=== PATIENT | male | born 1940 | race Caucasian/White ===

== ENCOUNTER → 2025-01-17 06:33 | Outpatient (REF) | payer MEDICARE, BC, SELFPAY ==
[2025-01-17 08:39] LABS: Blood Urea Nitrogen 28 mg/dl (9-20); Calcium 9.3 mg/dl (8.4-10.2); Carbon Dioxide 31 mmol/L (22-30); Chloride 105 mmol/L (98-107); Glucose 117 mg/dl (70-99); Potassium 3.8 mmol/L (3.5-5.1); Sodium 144 mmol/L (135-145); eGFR > 60.00
== END ==
LOC: REG 06:33
PROVIDERS: ATTENDING PHYSICIAN Specialist; FAMILY PHYSICIAN Family Medicine
DX: N28.89 Other specified disorders of kidney and ureter (principal)
CPT/HCPCS: 36415; 80048

== ENCOUNTER → 2025-01-18 10:11 | Outpatient (REF) | payer MEDICARE, BC, SELFPAY | LOC: RAD 10:11 | PROVIDERS: ATTENDING PHYSICIAN Specialist; FAMILY PHYSICIAN Family Medicine | DX: N28.89 Other specified disorders of kidney and ureter (principal) | CPT/HCPCS: 74170; Q9967 ==

== ENCOUNTER → 2025-02-10 06:56 | Outpatient (REF) | payer MEDICARE, BC, SELFPAY | LOC: RAD 06:56 | PROVIDERS: ATTENDING PHYSICIAN Urology; FAMILY PHYSICIAN Family Medicine | DX: N28.89 Other specified disorders of kidney and ureter (principal) | CPT/HCPCS: 71046 ==

== ENCOUNTER 2025-02-24 07:55 | Inpatient (IN) | payer MEDICARE, BC, SELFPAY ==
[2025-02-18 11:25] LABS: Hematocrit 40.5 % (39.0-52.0); Hemoglobin 14.2 g/dL (13.0-18.0); Mean Corp Hgb Conc. 35.1 g/dL (33.0-37.0); Mean Corpuscular Hgb 30.7 pg (27.0-31.0); Mean Corpuscular Volume 87.5 fL (80.0-94.0); Mean Platelet Volume 11.3 fL (7.4-10.4); Platelet Count 141 10^3/uL (130-400); Red Blood Cell Count 4.63 10^6/uL (4.70-6.10); Red Cell Dist. Width 13.2 % (11.5-14.5)
[2025-02-18 13:43] VITALS: BMI 27.8
[2025-02-24] VITALS (21 sets, daily range): BP systolic 153–206; BP diastolic 79–109; BMI 27.8
--- NOTE | 2025-02-24 12:04 | W.IMMPOSTOP ---
Surgical Immed Post Op Note
-
Primary Surgeon: Jeanne
Assisting Surgeon: Helen
Pre-op Diagnosis: L renal mass
Post-op Diagnosis: same
Procedure Performed: Lap L nephrectomy
Anesthesia Type: general
Specimen / Cultures: L kidney
Estimated Blood Loss: 50cc
Complications: none
Operative Findings: -
[2025-02-24 13:18] LABS: Hemoglobin 13.6 g/dL (13.0-18.0); Mean Corp Hgb Conc. 34.9 g/dL (33.0-37.0); Mean Corpuscular Hgb 30.8 pg (27.0-31.0); Mean Corpuscular Volume 88.2 fL (80.0-94.0); Mean Platelet Volume 10.8 fL (7.4-10.4); Platelet Count 131 10^3/uL (130-400); Red Blood Cell Count 4.42 10^6/uL (4.70-6.10); White Blood Cell Count 8.1 10^3/uL (4.8-10.8)
[2025-02-24] MEDS: NSS 1000 IV ×2 (13:26→17:29)
[2025-02-24 13:27] LABS: Blood Urea Nitrogen 18 mg/dl (9-20); Calcium 7.9 mg/dl (8.4-10.2); Carbon Dioxide 29 mmol/L (22-30); Chloride 105 mmol/L (98-107); Estimated Creatinine Clearance 43 ml/min; Glucose 173 mg/dl (70-99); Sodium 140 mmol/L (135-145); eGFR 54.51
[2025-02-24] MEDS: LOVENOX 40 MG SC (17:29)
[2025-02-24] MEDS: ALDACTONE 12.5 MG PO (17:30)
[2025-02-24] MEDS: LIORESAL 10 MG PO (22:00)
[2025-02-24] MEDS: FOLVITE 1 MG PO (22:00)
[2025-02-24] MEDS: SENOKOT 17.2 MG PO (22:00)
[2025-02-24] MEDS: TOPROL XL 50 MG PO (22:05)
[2025-02-24] MEDS: ANESTHETIC LOZENGE 1 LOZENGE PO (22:24)
[2025-02-25] MEDS: NORVASC 10 MG PO (00:15)
--- NOTE | 2025-02-25 01:02 | PTCARENOTE ---
Addendum entered by Shayy Sewell RN 02/25/25 02:09:
Rechecked manual BP 182/90. [employer] Dorinda aware.
Original Note:
Pt BP at 2205 171/91 HR 96. NAOMI Molina notified and advised to give scheduled metoprolol and follow up in an hour. BP at 2345 170/97 HR 99. NAOMI molina notified and ordered Norvasc 10mg. Care ongoing.
[2025-02-25 02:00] VITALS: BP 182/90
[2025-02-25 03:00] VITALS: BP 177/94
[2025-02-25] MEDS: TYLENOL 650 MG PO (03:11)
[2025-02-25 05:50] LABS: Hematocrit 36.3 % (39.0-52.0); Hemoglobin 13.2 g/dL (13.0-18.0); Mean Corp Hgb Conc. 36.4 g/dL (33.0-37.0); Mean Corpuscular Hgb 31.4 pg (27.0-31.0); Mean Corpuscular Volume 86.2 fL (80.0-94.0); Mean Platelet Volume 10.9 fL (7.4-10.4); Platelet Count 146 10^3/uL (130-400); Red Blood Cell Count 4.21 10^6/uL (4.70-6.10); Red Cell Dist. Width 13.1 % (11.5-14.5); White Blood Cell Count 9.1 10^3/uL (4.8-10.8)
[2025-02-25 06:13] LABS: Blood Urea Nitrogen 21 mg/dl (9-20); Calcium 8.1 mg/dl (8.4-10.2); Carbon Dioxide 27 mmol/L (22-30); Chloride 104 mmol/L (98-107); Estimated Creatinine Clearance 35 ml/min; Glucose 125 mg/dl (70-99); Potassium 3.8 mmol/L (3.5-5.1); Sodium 137 mmol/L (135-145); eGFR 42.49
[2025-02-25 07:00] VITALS: BP 164/93
[2025-02-25] MEDS: ORETIC 25 MG PO (08:36)
[2025-02-25] MEDS: FEOSOL 325 MG PO (08:36)
[2025-02-25] MEDS: ZESTRIL 20 MG PO (08:36)
[2025-02-25] MEDS: SENOKOT 17.2 MG PO (08:36)
[2025-02-25] MEDS: LIORESAL 10 MG PO (08:36)
[2025-02-25] MEDS: VITAMIN B1 100 MG PO (08:36)
--- NOTE | 2025-02-25 09:45 | W.PN.URO.CBU ---
Today's Communication / Plan
-
Discharge
Assessment / Plan
-
84M POD 1 s/p L nephrectomy for complex large L renal mass
Surgical YADIRA as expected post nx
- Reg diet
- Ambulate
- PO pain control
- Gregg out
- Discharge today
Diagnosis
-
Date of Service: February 25, 2025
-
Patient Diagnosis: L renal mass
Post Op Day: s/p lap L nephrectomy 02/26
Subjective
-
pain controlled
ambulated in room
tolerating diet
Objective
-
Vital Signs
Temp Pulse Resp BP Pulse Ox
98.8 F 79 18 164/93 95
02/25/25 07:00 02/25/25 07:00 02/25/25 07:00 02/25/25 07:00 02/25/25 07:00
Intake and Output
02/24/25 02/25/25 02/26/25
06:59 06:59 06:59
Intake Total 1280 / 1280
Output Total 1350 / 1350
Balance -70 / -70
Intake:
Oral fluids 480 / 480
IV fluids (Total) 800 / 800
NSS 300 / 300
Normosol 100 / 100
Output:
Urine, Gregg 1350 / 1350
Laboratory Results
02/25/25 05:14
02/25/25 05:14
Physical Exam
-
General - well developed, well nourished, no acute distress
Chest - clear bilaterally
Abdomen - soft, non-tender, positive bowel sounds, no CVAT, no incisional pain or distention
Gregg in place clear urine
Rectal - normal
Skin - warm & dry with no rash
Neuro - AOx3, no motor deficits
Extremities - no clubbing, no cyanosis, no edema
Incision - clean, dry
--- NOTE | 2025-02-25 10:32 | CM ---
CM following re: discharge planning.
Reviewed pt's chart, met with pt. Pt's spouse and daughter at bedside.
Pt is an 84 year old male, admitted with primary dx of POD 1 s/p L nephrectomy for complex large L renal mass.
Pt reports he lives with spouse 2SH, 2 steps to enter, has 3 supportive children. Pt described himself as independent in all areas [employer]. No DME, VN or SNF history.
Discharge order noted. Pt is aware, expressed his agreement with discharge. IMM reviewed, placed on chart, pt has a copy. Pt's spouse and daughter to transport pt home.
No after care VN services indicated.
PCP: Lilibeth Hernandez
Pharmacy: [facility].
D/C plan: home no needs. Spouse and daughter to transport.
[2025-02-25 11:30] VITALS: BP 171/89
== END 2025-02-25 13:44 | disposition home or self-care (01) | DRG 657 ==
LOC: 2 SOUTH 07:55
PROVIDERS: ADMITTING PHYSICIAN Urology; FAMILY PHYSICIAN Family Medicine; REFERRING PHYSICIAN Internal Medicine Hypertension Specialist
PROC: 0TT14ZG Resection of Left Kidney, Percutaneous Endoscopic Approach, Hand-Assisted (ICD-10-PCS; 2025-02-24)
DX: C64.2 Malignant neoplasm of left kidney, except renal pelvis (principal); N17.9 Acute kidney failure, unspecified; N28.89 Other specified disorders of kidney and ureter; I10 Essential (primary) hypertension; N40.0 Benign prostatic hyperplasia without lower urinary tract symptoms; R97.20 Elevated prostate specific antigen [PSA]; Z87.19 Personal history of other diseases of the digestive system; Z90.49 Acquired absence of other specified parts of digestive tract; Z80.42 Family history of malignant neoplasm of prostate; Z87.891 Personal history of nicotine dependence
CPT/HCPCS: 88307; 36415; 80048; 85027; 86850; 86900; 86901; 86920; 93005; C1776

== ENCOUNTER → 2025-03-24 07:19 | Outpatient (REF) | payer MEDICARE, BC, SELFPAY ==
[2025-03-24 08:10] LABS: Blood Urea Nitrogen 47 mg/dl (9-20); Carbon Dioxide 26 mmol/L (22-30); Chloride 108 mmol/L (98-107); Glucose 114 mg/dl (70-99); Potassium 5.4 mmol/L (3.5-5.1); Sodium 141 mmol/L (135-145); eGFR 27.32
== END ==
LOC: REG 07:19
PROVIDERS: ATTENDING PHYSICIAN Urology; FAMILY PHYSICIAN Family Medicine
DX: N28.89 Other specified disorders of kidney and ureter (principal)
CPT/HCPCS: 36415; 80048

== ENCOUNTER → 2025-04-14 06:34 | Outpatient (REF) | payer MEDICARE, BC, SELFPAY ==
[2025-04-14 08:23] LABS: Blood Urea Nitrogen 36 mg/dl (9-20); Calcium 9.1 mg/dl (8.4-10.2); Carbon Dioxide 25 mmol/L (22-30); Chloride 108 mmol/L (98-107); Glucose 113 mg/dl (70-99); Potassium 4.6 mmol/L (3.5-5.1); Sodium 141 mmol/L (135-145); eGFR 28.81
== END ==
LOC: REG 06:34
PROVIDERS: ATTENDING PHYSICIAN Urology; FAMILY PHYSICIAN Family Medicine
DX: N28.89 Other specified disorders of kidney and ureter (principal)
CPT/HCPCS: 36415; 80048

== ENCOUNTER → 2025-10-05 06:40 | Outpatient (REF) | payer MEDICARE, BC, SELFPAY ==
[2025-10-05 08:02] LABS: Blood Urea Nitrogen 47 mg/dl (9-20); Calcium 9.0 mg/dl (8.4-10.2); Carbon Dioxide 22 mmol/L (22-30); Chloride 106 mmol/L (98-107); Glucose 107 mg/dl (70-99); Potassium 5.1 mmol/L (3.5-5.1); Sodium 138 mmol/L (135-145); eGFR 23.58
== END ==
LOC: REG 06:40
PROVIDERS: ATTENDING PHYSICIAN Specialist; FAMILY PHYSICIAN Family Medicine
DX: N28.89 Other specified disorders of kidney and ureter (principal)
CPT/HCPCS: 36415; 80048